=== PATIENT | female | born 1980 | race Caucasian/White ===

== ENCOUNTER → 2022-09-09 | Outpatient (CLI) | payer BC ==
[2022-09-09 08:46] VITALS: BP 110/75; PULSE 82; RESP 16; TEMP 97.9
--- NOTE | 2022-09-09 09:46 | P.HPOB ---
History of Present Illness H&P Date: 09/09/22 Chief Complaint: The patient is here for her routine gynecologic exam and ma mmogram. This is a 42-year-old 014 with an LMP of 08/18/2022. She is here to establish with this office. It has been more than 10 years since her last pelvic exam. Her is status post vasectomy. She states she went for 2 months without a menstrual period before her LMP. This was a little unusual for her. She felt a few hot flashes during that time, but after her LMP the hot fla shes resolved. Menarche was at age 15 and menstrual periods were generally regular every month until her prior to her LMP. She has a known cyst near the clitoris on the left side and she has had this for many years. She states it has not changed in many years and does not cause any significant problems for her. She is otherwise without complaints. Review of Systems The patient has lost 5 pounds over the last year. She has been trying to exercise regularly. She denies respiratory, cardiac, or G.I. problems. Past Medical History Additional Past Medical History / Comment(s): PAST MANAGER OF FINANCE HISTORY: She has no history of STDs. History of Bartholin's cyst treated with a Word catheter, and left periclitoral cyst unchanged for many years. History of Any Multi-Drug Resistant Organisms: None Reported Past Surgical History: Section Additional Past Surgical History / Comment(s): X1 (3 vaginal deliveries) Past Anesthesia/Blood Transfusion Reactions: No Reported Reaction Past Psychological History: Anxiety, Depression (She denies current depression without medications.) Additional Psychological History / Comment(s): PT STATES SHE HAS ANXIETY, DEPRESSION BUT NOT DIAGNOSED Smoking Status: Former smoker Past Alcohol Use History: Occasional Additional Past Alcohol Use History / Comment(s): Quit smoking cigarettes in 2018. Past Drug Use History: None Reported Additional History: She has been since 2001. 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 - Past Family History Mother Family Medical History: COPD, Hyperlipidemia, Hypertension, Thyroid Disorder Additional Family Medical History / Comment(s): Maternal great grandmother had breast cancer. Father Family Medical History: No Reported History Brother(s) Family Medical History: Hyperlipidemia, Hypertension Medications and Allergies Home Medications Medication Instructions Recorded Confirmed Type No Known Home Medications 09/09/22 09/09/22 History Allergies Allergy/AdvReac Type Severity Reaction Status Date / Time No Known Allergies Allergy Unverified 09/09/22 08:39 Exam Vital Signs Temp Pulse Resp BP Pulse Ox 09/09/22 08:40 97.9 F 82 16 110/75 98 Intake and Output 09/08/22 09/09/22 09/09/22 22:59 06:59 14:59 Other: Weight 92.079 kg Height 5 foot 1 inch, weight 203 pounds, BMI 38.4. This is a well-developed well-nourished white female who is alert and oriented times 3 in no acute distress. HEENT: Within normal limits. NECK: Supple without mass or thyromegaly. CHEST AND LUNGS: Clear to auscultation. HEART: Regular rate and rhythm. BREASTS: Are without mass or discharge. AXILLARY EXAM: Negative for adenopathy. BACK: Negative for CVA tenderness. ABDOMEN: Soft, nontender, without palpable masses. PELVIC EXAM: External genitalia reveals a left periclitoral cyst measuring 2.5 x 1.5 cm which is soft, slightly fluctuant, nontender and benign-appearing. She states this has been present for many years and does not cause any significant problems. The cervix reveals a long polypoid tissue measuring approximately 2 cm x 4 mm and has a slightly irregular and with a benign appearance. The tissue and cervix are slightly friable. The cervix otherwise is unremarkable. She does state she occasionally will notice a small amount of post coital blood. There is no cervical motion tenderness. There is no unusual discharge. There is no evidence of prolapse. The uterus is midposition, multiparous nongravid size and nontender. There are no palpable adnexal masses or tenderness. RECTAL EXAM: negative for mass or tenderness and is negative for occult blood. EXTREMITIES: Nontender. IMPRESSION: 1. 42-year-old female whose is status post vasectomy. 2. Left periclitoral oral cyst measuring 2.5 x 1.5 cm and is minimally symptomatic and has been there for many years according to the patient. 3. Endocervical polypoid tissue measuring approximately 2 x 0.4 cm. This may be the cause for her occasional postcoital spotting. 4. Recent missed menstrual period followed by a normal menstrual flow at the time of her LMP. Possible early perimenopause. PLAN: 1. Pap smear cotest was performed. 2. Self breast awareness was discussed with the patient. We have also discussed symptoms associated with inflammatory breast cancer. 3. Screening mammogram will be done today. 4. Conservative management for the periclitoral cyst which is not causing her any major problems and has not changed in many years. 5. I recommended removal of the endocervical polypoid tissue since she has been experiencing occasional postcoital spotting. An appointment will be made for this to be removed. 6. She will keep a menstrual calendar and call if significant menstrual problems. 7.Osteoporosis prevention was discussed. I have stressed the importance of adequate calcium, vitamin D and regular exercise. Recommended amounts of calcium and vitamin D were also discussed. 8. She was advised to return in one year for her annual well woman exam and as needed.
--- NOTE | 2022-09-10 09:05 | MM ---
Reason for Exam: Screening (asymptomatic). Baseline mammogram. Patient History: Menarche at age 15. First Full-Term at age 21. Premenopausal. Last menstrual period: 08/25/2022 Risk Values: Rebecca 5 year model risk: 0.4%. NCI Lifetime model risk: 7.3%. Prior Study Comparison: Patient's first Mammogram. Tissue Density: There are scattered fibroglandular densities. Findings: Analyzed By CAD. Pattern appears symmetrical. No suspicious groups of microcalcifications, spiculated or lobular masses, architectural distortion or other secondary signs of malignancy are mammographically apparent. Overall Assessment: Negative, BI-RAD 1 Management: Screening Mammogram of both breasts in 1 year. A negative mammogram report should not preclude additional follow up of suspicious palpable abnormalities. Patient should continue monthly self breast exam. A clinical breast exam by your physician is recommended on an annual basis and results should be correlated with mammographic findings. Electronically signed and approved by: Sergei Bateman D.O. Radiologis
== END ==
LOC: WWCWWP 08:30
PROVIDERS: ATTEND Obstetrics & Gynecology
DX: Z01.419 Encounter for gynecological examination (general) (routine) without abnormal findings (principal); Z12.31 Encounter for screening mammogram for malignant neoplasm of breast; Z80.3 Family history of malignant neoplasm of breast; Z87.891 Personal history of nicotine dependence; N93.0 Postcoital and contact bleeding
CPT/HCPCS: 77067

== ENCOUNTER → 2022-10-01 | Day surgery (SDC) | payer BC ==
[2022-10-01 12:15] VITALS: PULSE 74; RESP 16; TEMP 98.3
--- NOTE | 2022-10-01 13:15 | P.PCN ---
Date of Procedure: 10/01/22 Preoperative Diagnosis: Post coital spotting and endocervical polypoid tissue Postoperative Diagnosis: Same. Procedure(s) Performed: Removal of endocervical polypoid tissue. Anesthesia: none Surgeon: Jorje Garcia Estimated Blood Loss (ml): 1 Pathology: other (Endocervical polypoid tissue) Condition: stable Disposition: same day Indications for Procedure: This was a 42-year-old 014 with an LMP of 09/13/2022. She has been experiencing occasional postcoital spotting. Pap smear cotest was negative. On her routine exam, endocervical polypoid tissue was noted measuring approximately 4 mm x 20 mm. The decision was made to remove the endocervical polypoid tissue. Operative Findings: The polypoid tissue from the cervix was irregular and soft. It measured approximately 4 mm x 16 mm. It was removed in 3 pieces. Bimanual examination revealed a 12 week size firm uterus without palpable adnexal masses. Description of Procedure: Pre-procedure vital signs: Blood pressure 116/69, temperature 98.3, pulse 74, pulse oximeter 98%. Height 5 feet 0 inches weight 202 pounds. The procedure was discussed with the patient. This discussion included possible risks including bleeding and infection. All of her questions were answered. The patient also mentioned that she has been experiencing of pressure at times including occasionally after sexual intercourse. The patient was placed in the lithotomy position. Bimanual examination was performed and the uterus was approximately 12 weeks size and somewhat firm. There were no palpable adnexal masses. A speculum was inserted into the vagina and the cervix was prepped with Betadine solution. The polypoid cervical tissue was grasped with a ringed forceps. The tissue was fairly soft and small piece of the tissue was simply by grasping the tissue. This small piece was placed in the specimen container. A long forcep instrument was used to grasp the polypoid tissue near the base and a simple twisting motion was used to remove the majority of the polypoid tissue. This was also placed in the specimen container. The forcep instrument was then used to grasp the tissue at the base of the growth within the endocervix. This tissue was also removed w ithout difficulty and sent in the specimen container. The polypoid tissue was sent for pathological examination in 3 pieces. A small amount of Monsel solution was applied to the endocervix at the attachment site and this was made hemostatic. This estimated blood loss was 1 mL. The patient tolerated the procedure well. Post-procedure blood pressure was 138/83. Pulse 74, and pulse oximeter 98%. The patient was instructed to call if she has any problems. She was also instructed to avoid all sexual activity for 1 full week beyond the procedure and any bleeding. I recommended a pelvic ultrasound because of the pelvic pressure and enlarged uterus. I suspect uterine fibroids would be the most likely explanation for her uterine enlargement.
[2022-10-01 13:33] VITALS: BP 138/83
--- NOTE | 2022-10-07 16:19 | P.PN ---
Progress Note - Text Progress Note Date: 10/07/22 OUTPATIENT FOLLOW-UP NOTE TEST(S)/RESULTS: The pathology report from 10/01/22 shows a benign endocervical polyp METHOD OF NOTIFICATION: The patient was notified by phone on 10/07/2022. PATIENT COMMENTS: She had a small amount of bleeding and noticed a small odor soon after the procedure, but both the bleeding and the order have completely resolved. Pelvic ultrasound scheduled for 10/29/2022 DIAGNOSIS: Benign endocervical polyp. DISCUSSION: PLAN: Call if problems. Pelvic ultrasound is scheduled for 10/29/2022.
== END ==
LOC: WWCWWP 11:53
PROVIDERS: ATTEND Obstetrics & Gynecology
DX: N84.1 Polyp of cervix uteri (principal)
CPT/HCPCS: 88305

== ENCOUNTER → 2022-10-29 | Outpatient (CLI) | payer BC ==
--- NOTE | 2022-10-29 16:14 | US ---
EXAMINATION TYPE: US pelvic complete DATE OF EXAM: 10/29/2022 COMPARISON: Transvaginal ultrasound 05/17/2015 CLINICAL INDICATION: Female, 42 years old with history of R10.2 PELVIC AND PERINEAL PAIN R68.89 enlar ged uterus; known fibroid uterus TECHNIQUE: Transabdominal (TA). Transabdominal sonographic images of the pelvis were acquired. Date of LMP: 3 wks ago EXAM MEASUREMENTS: Uterus: 9.2 x 5.5 x 6.9 cm Endometrial Stripe: unable to distinguish within heterogeneous uterine echopattern Right Ovary: 2.8 x 1.8 x 1.8 cm Left Ovary: not seen 1. Uterus: Anteverted anterior fundal 6.3 x 5.5 x 5.8cm fibroid, 4.0 x 3.4 x 2.8cm fibroid at fund al posterior, 4.4 x 3.1 x 3.4cm fibroid mid uterine body, multiple other smaller fibroids most likely 2. Endometrium: unable to distinguish within the heterogeneous echopattern 3. Right Ovary: wnl 4. Left Ovary: not seen 5. Bilateral Adnexa: wnl 6. Posterior cul-de-sac: wnl Multiple fibroids identified within the anteverted uterus. Endometrium is poorly visualized due to he terogenous appearance of the uterus. Right ovary demonstrates unremarkable appearance. Left ovary is not seen due to overlying bowel gas. No free fluid. IMPRESSION: 1. Fibroid changes of the uterus. 2. Poor visualization of the endometrium due to #1. 3. Nonvisualization of the left ovary due to overlying bowel gas.
--- NOTE | 2022-11-05 14:43 | P.PN ---
Progress Note - Text Progress Note Date: 11/05/22 OUTPATIENT FOLLOW-UP NOTE TEST(S)/RESULTS: Pelvic ultrasound done on 10/29/2022 shows a multi-fibroid uterus with the largest fibroid measuring 6.3 cm and 2 additional fibroids each measuring about 4 cm. METHOD OF NOTIFICATION: Patient was notified by phone on 11/05/2022. PATIENT COMMENTS: The patient has been experiencing very heavy menstrual periods as well as pelvic pressure especially with sexual intercourse. The patient is interested in surgical management. DIAGNOSIS: Symptomatic multi-fibroid uterus with the largest fibroid measuring 6.3 cm. Hypermenorrhea and pelvic discomfort most likely related to the multi- fibroid uterus. DISCUSSION: We have had a long discussion regarding the fibroid uterus. We have discussed options including conservative management, hysterectomy, and myomectomy. She states she has completed her childbearing and her has had a vasectomy. We have discussed different types of hysterectomy including abdominal hysterectomy, vaginal hysterectomy, and laparoscopically assisted hysterectomy. She would like to be referred for possible hysterectomy. PLAN: Patient will be referred to Dr. Elizondo for possible hysterectomy and further discussion regarding her symptomatic multi-fibroid uterus.
== END | disposition home or self-care (01) ==
LOC: RADUSWWP 15:26
PROVIDERS: ATTEND Obstetrics & Gynecology
DX: D25.9 Leiomyoma of uterus, unspecified (principal); R10.2 Pelvic and perineal pain; R68.89 Other general symptoms and signs
CPT/HCPCS: 76856

== ENCOUNTER → 2024-03-08 | Outpatient (CLI) | payer BC ==
--- NOTE | 2024-03-09 07:14 | MM ---
Reason for Exam: Screening (asymptomatic). Last mammogram was performed 1 year(s) and 6 month(s) ago. Patient History: Menarche at age 15. First Full-Term at age 21. Premenopausal. Risk Values: Rebecca 5 year model risk: 0.5%. NCI Lifetime model risk: 7.2%. Prior Study Comparison: 09/09/2022 Bilateral MG screening mammo w CAD, [facility]. Tissue Density: There are scattered areas of fibroglandular density. Findings: Analyzed By CAD. Right breast: There is no suspicious group of microcalcifications or new suspicious mass. Left breast: There is no suspicious group of microcalcifications or new suspicious mass. Overall Assessment: Negative, BI-RAD 1 Management: Screening Mammogram of both breasts in [address] [facility] will attempt to contact patient to return for supplemental views and ultrasound if indicated. Patient should continue monthly self-breast exams. A clinical breast exam by your physician is recommended on an annual basis. This exam should not preclude additional follow-up of suspicious palpable abnormalities. Note on Rebecca scores and lifetime risk: 1. A Rebecca score greater than 3% is considered moderate risk. If this is the case, consider specialist referral to assess eligibility for a risk reducing agent. 2. If overall lifetime risk for the development of breast cancer is 20% or higher, the patient may qualify for future screening with alternating mammogram and breast MRI. [facility], , 03/09/2024 7:09 AM. Electronically signed and approved by: Martín Evans DO
== END | disposition home or self-care (01) ==
LOC: RADMAMWWP 16:32
PROVIDERS: ATTEND Family Medicine
DX: Z12.31 Encounter for screening mammogram for malignant neoplasm of breast (principal); R92.323 Mammographic fibroglandular density, bilateral breasts
CPT/HCPCS: 77067